=== PATIENT | female | born 1990 | race Two or more races ===

== ENCOUNTER 2025-03-13 11:29 | Inpatient (IN) | payer OTHER ==
[~2025-03-13] VITALS: Ht 167.6 cm; Wt 90.5 kg
[2025-03-13 12:05] VITALS: PULSE 89; RESP 25; O2SAT 98
[2025-03-13] MEDS: LORazepam 0.5 MG TAB PO ONE (12:22)
[2025-03-13] MEDS: ACETAMINOPHEN 325 MG TAB PO ONE (12:22)
--- NOTE | 2025-03-13 12:38 | ED.PDOC ---
History of Present Illness HPI Comments 34 y/o F, BIBA, with PMHx of CAD, DVT's, and varicose veins presents to the ED for CC of s/p syncopal episode. EMS reports, patient was coming from home where she had a witnessed syncopal episode after complaining of a headache. Upon arrival to ED, following incident patient complains of new onset symptoms of non-radiating chest pain. She was also complaining numbness tingling to her lips and extremities. She was tachypneic. Patient comments, on previous episodes in the past. No other symptoms or modifying factors present at this time. Denies pain. 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 Family History Family History: Unknown Social History Smoker: Non-Smoker Alcohol: Denies ETOH Use Drugs: Denies Drug Use Lives In: Home Constitutional: denies: chills, diaphoresis, fatigue, fever, malaise, sweats, weakness, others EENTM: denies: blurred vision, double vision, ear bleeding, ear discharge, ear drainage, ear pain, ear ringing, eye pain, eye redness, hearing loss, mouth pain, mouth swelling, nasal discharge, nose bleeding, nose congestion, nose pain, photophobia, tearing, throat pain, throat swelling, voice changes, others Respiratory: denies: cough, hemoptysis, orthopnea, SOB at rest, shortness of breath, SOB with excertion, stridor, wheezing, others Cardiovascular: reports: chest pain; denies: dizzy spells, diaphoresis, Dyspnea on exertion, edema, irregular heart beat, left arm pain, lightheadedness, palpitations, PND, syncope, others Gastrointestinal: denies: abdomen distended, abdominal pain, blood streaked bowels, constipated, diarrhea, dysphagia, difficulty swallowing, hematemesis, melena, nausea, poor appetite, poor fluid intake, rectal bleeding, rectal pain, vomiting, others Genitourinary: denies: abnormal vagina bleeding, burning, dyspareunia, dysuria, flank pain, frequency, hematuria, incontinence, pain, , vagina discharge, urgency, others Neurological: reports: headache; denies: dizziness, fainting, left sided numbness, left sided weakness, numbness, paresthesia, pre-existing deficit, right sided numbness, right sided weakness, seizure, speech problems, tingling, tremors, weakness, others Musculoskeletal: denies: back pain, gout, joint pain, joint swelling, muscle pain, muscle stiffness, neck pain, others Integumetry: denies: bruises, change in color, change in hair/nails, dryness, laceration, lesions, lumps, rash, wounds, others Allergic/Immunocompromised: denies: Difficulty Healing, Frequent Infections, Hives, Itching, others Hematologic/Lymphatic: denies: anemia, blood clots, easy bleeding, easy bruising, swollen glands, others Endocrine: denies: excessive hunger, excessive sweating, excessive thirst, excessive urination, flushing, intolerance to cold, intolerance to heat, unexplained weight gain, unexplained weight loss, others Psychiatric: denies: anxiety, bipolar disorder, depression, hopeless, panic disorder, schizophrenia, sleepless, suicidal, others All Other Systems: Reviewed and Negative Physical Exam General Appearance: No Apparent Distress, Obese HEENT: Normal ENT Inspection, Pharynx Normal Neck: Full Range of Motion, Non-Tender, Normal, Normal Inspection Respiratory: Chest Non-Tender, Lungs Clear, No Accessory Muscle Use, No Respiratory Distress, Normal Breath Sounds Cardiovascular: No Edema, No Murmur, No Gallop, Normal Peripheral Pulses, Regular Rate/Rhythm Breast Exam: Deferred Gastrointestinal: No Organomegaly, Non Tender, No Pulsatile Mass, Normal Bowel Sounds, Soft Genitalia: Deferred Pelvic: Deferred Rectal: Deferred Extremities: No calf tenderness, Normal capillary refill, Normal inspection, Normal range of motion, Non-tender, No pedal edema Musculoskeletal : Location: Right Extremity Location: Hand (CARPAL SPASMS) Apperance: Normal 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 Was a procedure done?: No EKG EKG : Pulse Rate (adult): 87 [place]: Normal Cardiac Rhythm: NSR Block: None Hypertrophy: None ST: Normal Differential Dx Considerations may include: ANXIETY, ELECTROLYTE IMBALANCE, HYPOGLYCEMIA, MIGRAINE X-Ray, Labs, Meds, VS Vital Signs Date Time Temp Pulse Resp B/P (MAP) Pulse Ox O2 Delivery O2 Flow Rate FiO2 03/13/25 14:47 100.1 03/13/25 13:47 102.6 03/13/25 13:24 102.6 03/13/25 12:48 87 03/13/25 12:22 101.0 03/13/25 12:05 101.0 89 25 131/75 (93) 98 101.0 03/13/25 12:05 89 25 98 Room Air* 0 21 03/13/25 12:03 98.8 99 28 128/76 (93) 98.8 03/13/25 11:30 87 Lab Test 03/13/25 13:30 03/13/25 13:11 Range/Units Urine Color Light-yellow Yellow Urine Clarity Clear Clear Urine pH 8.0 5.0-9.0 Urine Specific [place] 1.016 1.001-1.035 Urine Protein Negative Negative Urine Ketones Negative Negative Urine Blood 2+ H Negative /uL Urine Nitrite Negative Negative Urine Bilirubin Negative Negative Urine Urobilinogen Normal Negative mg/dL Urine Leukocyte Esterase Negative Negative /uL Urine RBC 19 0 - 4 /hpf Urine Microscopic WBC < 1 0-5 /HPF Urine Squamous Epithelial Cells None seen <5 /hpf Urine Bacteria None seen None Seen /hpf Urine Glucose Normal Normal mg/dL Urine Test Negative Negative Urine Opiates Screen Neg NEGATIVE Urine Fentanyl Screen Neg NEGATIVE Urine Barbiturates Screen Neg NEGATIVE Urine Phencyclidine Screen Neg NEGATIVE Urine Amphetamines Screen Neg NEGATIVE Urine Benzodiazepines Screen Neg NEGATIVE Urine Cocaine Screen Neg NEGATIVE Urine Cannabinoids Screen Neg NEGATIVE White Blood Count 8.6 4.4-10.8 10^3/uL Red Blood Count 5.07 4.0-5.20 10^6/uL Hemoglobin 14.4 12.2-16.2 g/dL Hematocrit 43.4 36.0-46.0 % Mean Corpuscular Volume 85.6 80.0-100.0 fL Mean Corpuscular Hemoglobin 28.4 28.0-32.0 pg Mean Corpuscular Hemoglobin Concent 33.2 32.0-36.0 g/dL Red Cell Distribution Width 13.4 11.8-14.3 % Platelet Count 220 140-450 10^3/uL Mean Platelet Volume 9.0 6.9-10.8 fL Neutrophils (%) (Auto) 83.2 H 37.0-80.0 % Lymphocytes (%) (Auto) 10.2 10.0-50.0 % Monocytes (%) (Auto) 6.0 0.0-12.0 % Eosinophils (%) (Auto) 0.3 0.0-7.0 % Basophils (%) (Auto) 0.3 0.0-2.0 % Neutrophils # (Auto) 7.2 1.6-8.6 10 ^3/uL Lymphocytes # (Auto) 0.9 0.4-5.4 10 ^3/uL Monocytes # (Auto) 0.5 0-1.3 10 ^3/uL Eosinophils # (Auto) 0 0-0.8 10 ^3/uL Basophils # (Auto) 0 0-0.2 10 ^3/uL Nucleated Red Blood Cells 0.1 % Sodium Level 137 136-145 mmol/L Potassium Level 3.5 3.5-5.1 mmol/L Chloride Level 104 98-107 mmol/L Carbon Dioxide Level 23 20-31 mmol/L Anion Gap 10 5-15 Blood Urea Nitrogen 11 9-23 mg/dL Creatinine 0.59 0.550-1.02 mg/dL Glomerular Filtration Rate Calc 121 >90 mL/min BUN/Creatinine Ratio 18.6 10.0-20.0 Serum Glucose 97 74-106 mg/dL Lactic Acid Level 1.8 0.4-2.0 mmol/L Calcium Level 9.3 8.7-10.4 mg/dL Total Bilirubin 0.4 0.2-1.0 mg/dL Aspartate Amino Transferase (AST) 13 13-40 U/L Alanine Aminotransferase (ALT) 10 7-40 U/L Alkaline Phosphatase 95 46-116 U/L Total Protein 7.8 5.7-8.2 g/dL Albumin 4.7 3.2-4.8 g/dL Current Medications Medications (Trade) Dose Ordered Sig/Angelita Route Start Time Stop Time Status Last Admin Acetaminophen (Tylenol Tablet) 650 mg ONCE ONCE PO 03/13/25 12:30 03/13/25 12:31 DC 03/13/25 12:22 Lorazepam (Ativan Tablet) 1 mg ONCE ONCE PO 03/13/25 12:30 03/13/25 12:31 DC 03/13/25 12:22 Ibuprofen (Motrin Tablet) 600 mg ONCE ONCE PO 03/13/25 13:30 03/13/25 13:31 DC 03/13/25 13:47 X-Ray, Labs, Meds, VS Comment This 34-year-old female presents secondary to acute onset of headache, neck pain and rapid breathing. She was complaining numbness tingling to all her extremities. She was history of anxiety. The patient has normal labs but has unexplained fever and tachycardia. She was given Ativan, Benadryl. When she was rechecked at approximately 3:00 p.m., she states she feels substantially better. Vancomycin Zosyn was also ordered. As she was unexplained fever as high as 102.6 with tachycardia for further workup management. She may have an occult infection. I will admit her further workup management. Time of 1ST Reevaluation: 13:01 Reevaluation 1ST: Unchanged Time of 2ND Reevaluation: 15:05 Reevaluation 2ND: Improved Patient Education/Counseling: Diagnosis, Treatment Family Education/Counseling: No Family Present Departure 1 Departure Time of Disposition: 15:05 Impression: Primary Impression: Headache Additional Impressions: Fever Tachycardia Disposition: ADMITTED INPATIENT Admit to: Tele Condition: Serious Discharged With: Self, Spouse Critical Care Note Critical Care Time?: Yes (30 min-critical care time only) Critical care comment: Total critical care time: Approximately 36 minutes Due to a high probability of clinically significant, life threatening deterioration, the patient required my highest level of preparedness to intervene emergently and I personally spent this critical care time directly and personally managing the patient. This critical care time included obtaining a history; examining the patient; pulse oximetry; ordering and review of studies; arranging urgent treatment with development of a management plan; evaluation of patient's response to treatment; frequent reassessment; and, discussions with other providers. This critical care time was performed to assess and manage the high probability of imminent, life-threatening deterioration that could result in multi-organ failure. It was exclusive of separately billable procedures and treating other patients and teaching time. Please see MDM section and the rest of the note for further information on patient assessment and treatment. Stability Stability form required: No Heart Score Heart Score: Heart Score Response (Comments) Value History N/A 0 EKG N/A 0 Age N/A 0 Risk Factors N/A 0 Troponin N/A 0 Total 0 I personally scribed for CONNIE LUTZ MD ([email or web address]) on 03/13/25 at 12:38. Electronically submitted by Ngoc Hawkins ([email or web address]). I personally scribed for CONNIE LUTZ MD ([email or web address]) on 03/13/25 at 12:48. Electronically submitted by Ngoc Hawkins ([email or web address]). CONNIE LUTZ MD Mar 13, 2025 12:38
[2025-03-13 13:27] LABS: Basophils # (auto) 0 10 ^3/uL (0-0.2); Basophils % (auto) 0.3 % (0.0-2.0); Eosinophils # (auto) 0 10 ^3/uL (0-0.8); Eosinophils % (auto) 0.3 % (0.0-7.0); Hematocrit 43.4 % (36.0-46.0); Hemoglobin 14.4 g/dL (12.2-16.2); Lymphocytes # (auto) 0.9 10 ^3/uL (0.4-5.4); Lymphocytes % (auto) 10.2 % (10.0-50.0); Mean Corpuscular Hemoglobin 28.4 pg (28.0-32.0); Mean Corpuscular Hgb Conc. 33.2 g/dL (32.0-36.0); Mean Corpuscular Volume 85.6 fL (80.0-100.0); Monocytes # (auto) 0.5 10 ^3/uL (0-1.3); Neutrophils # (auto) 7.2 10 ^3/uL (1.6-8.6); Neutrophils % (auto) 83.2 % (37.0-80.0); Nucleated Red Blood Cells % 0.1 %; Platelet Count (auto) 220 10^3/uL (140-450); Red Blood Cells 5.07 10^6/uL (4.0-5.20); Red Cell Distribution Width 13.4 % (11.8-14.3); White Blood Cell 8.6 10^3/uL (4.4-10.8)
[2025-03-13 13:45] LABS: Alanine Aminotransferase 10 U/L (7-40); Albumin 4.7 g/dL (3.2-4.8); Alkaline Phosphatase 95 U/L (46-116); Anion Gap 10 (5-15); Aspartate Aminotransferase 13 U/L (13-40); BUN/Creatinine Ratio 18.6 (10.0-20.0); Bilirubin, Total 0.4 mg/dL (0.2-1.0); Blood Urea Nitrogen 11 mg/dL (9-23); Calcium 9.3 mg/dL (8.7-10.4); Carbon Dioxide 23 mmol/L (20-31); Chloride 104 mmol/L (98-107); Glucose 97 mg/dL (74-106); Potassium 3.5 mmol/L (3.5-5.1); Sodium 137 mmol/L (136-145); Total Protein 7.8 g/dL (5.7-8.2)
[2025-03-13] MEDS: IBUPROFEN 600 MG TAB PO ONE (13:47)
[2025-03-13 13:49] LABS: Urine Bacteria None Seen /hpf (None Seen)
[2025-03-13 14:02] LABS: Urine Blood 2+ /uL (Negative); Urine Clarity Clear (Clear); Urine Color Light-Yellow (Yellow); Urine Protein, UAD Negative (Negative); Urine Specific Gravity 1.016 (1.001-1.035); Urine Squamous Epithelial Cell None Seen /hpf (<5); Urine Urobilinogen Normal (Negative); Urine WBC < 1 /HPF (0-5)
[2025-03-13 14:18] LABS: Amphetamine Screen, Urine Neg (NEGATIVE); Barbiturate Scree,Urine Neg (NEGATIVE); Benzodiazephine Screen, Urine Neg (NEGATIVE); Cannabinoid Screen, Urine Neg (NEGATIVE); Cocaine Screen, Urine Neg (NEGATIVE); Opiate Scree,Urine Neg (NEGATIVE); Phencyclidine Screen, Urine Neg (NEGATIVE)
--- NOTE | 2025-03-13 14:37 | DVH ---
EXAM: CT HEAD WITHOUT CONTRAST HISTORY: headache COMPARISON: None TECHNIQUE: Axial images of the head were obtained and reformatted in coronal and sagittal planes. All CT scans at this medical facility are performed using dose modulation techniques as appropriate t o a performed exam including the following: Automated exposure control was utilized; adjustment of th e MA and/or KV according to patient size; and use of iterative reconstruction technique. CT Dose: CTDI volume is 52 mGy. Dose-length product is 863 mGy*cm FINDINGS: There is no evidence of acute intracranial hemorrhage, mass, mass effect midline shift. There is no h ydrocephalus or extra-axial fluid collection. Incidental note is made of cavum septum pellucidum. Gr ay-white matter differentiation is maintained. The visualized paranasal sinuses and mastoid air cells are clear. The calvarium is intact. IMPRESSION: 1. No acute intracranial process. HS:Y
[2025-03-13] MEDS: diphenhdrAMINE HCL 50 MG/1 ML VL IV ONE (14:56)
[2025-03-13] MEDS: PIPERACILLIN-TAZOB 3.375GM 100 ML IV ONE (14:58)
[2025-03-13] MEDS ORDERED: NITROGLYCERIN 0.4 MG SL TAB SL PRN (18:15)
[2025-03-13] MEDS ORDERED: MORPHINE SULFATE INJ 2 MG/ml SYRG IV PRN ×2 (18:15)
[2025-03-13] MEDS ORDERED: TEMAZEPAM 15 MG CAP PO PRN (18:15)
[2025-03-13] MEDS ORDERED: DOCUSATE SOD 100 MG CAP PO PRN (18:15)
[2025-03-13] MEDS: SODIUM CHLORIDE 0.9% 1,000 ML IV SCH (18:35)
[2025-03-13] MEDS: AZITHROMYCIN 500MG/ 250ML 250 ML IV SCH (18:36)
--- NOTE | 2025-03-13 18:53 | ECG ---
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
[2025-03-13] MEDS: ONDANSETRON HCL 4 MG/2 ML VIAL IV PRN (19:02)
[2025-03-13 19:36] LABS: Rapid Influenza A Negative (Negative); Rapid Influenza B Negative (Negative)
[2025-03-13 20:28] VITALS: PULSE 93; RESP 17; O2SAT 98
--- NOTE | 2025-03-13 21:04 | DVHHP2 ---
History of Present Illness 34 y/o female patient with h/o CAD, DVT presents with c/o syncope. Patient repor ts having a headache prior to witnessed syncopal episode. Patient also c/o chest pain upon arrival to ED. While in the emergency department the patient was evaluated by the provider, As per provider: Labs, vital signs, and imagining monitored. Patient will be admitted for further evaluation and treatment. I discussed admission with the patient/family and is in agreement to treatment plan. Allergies: Coded Allergies: NO KNOWN ALLERGIES (Unverified , 03/13/25) Current Medications Current Medications Medications (Trade) Dose Ordered Sig/Angelita Route PRN Reason Start Time Stop Time Status Last Admin Sodium Chloride 1,000 ml @ 120 mls/hr Q8H20M IV 03/13/25 18:15 03/13/25 18:35 Acetaminophen/ Hydrocodone Bitart ([place] 5/325MG Tab) 1 tab Q4HP PRN PO MODERATE PAIN (4-6 PAIN SCALE) 03/13/25 18:15 Temazepam (Restoril) 15 mg QHSP PRN PO FOR INSOMNIA 03/13/25 18:15 Ondansetron HCl (Zofran) 4 mg Q4HP PRN IV NAUSEA / VOMITING 03/13/25 18:15 03/13/25 19:02 Docusate Sodium (Colace Capsule) 100 mg BIDPRN PRN PO FOR CONSTIPATION 03/13/25 18:15 Enoxaparin Sodium (Lovenox) 40 mg DAILY SC 03/14/25 10:00 Acetaminophen (Tylenol Tablet) 650 mg Q6HP PRN PO PAIN SCALE 1-3 OR TEMP>100.4 03/13/25 18:15 Morphine Sulfate 2 mg Q4HPRN PRN IV SEVERE PAIN (7-10 PAIN SCALE) 03/13/25 18:15 Nitroglycerin (Ntrostat Sublingual) 0.4 mg Q5MINP PRN SL FOR CHEST PAIN 03/13/25 18:15 Morphine Sulfate 2 mg Q30M PRN IV FOR CHEST PAIN 03/13/25 18:15 Azithromycin 250 ml @ 125 mls/hr DAILY IV 03/13/25 18:15 03/13/25 18:36 Famotidine (Pepcid Injection) 20 mg DAILY IV 03/14/25 10:00 Review of Systems Constitutional: denies chills, denies fever, denies malaise Eyes: denies eye pain, denies vision change ENT: denies ear pain, denies headache, denies nasal congestion, denies painful swallowing, denies voice change Cardiovascular: denies chest pain, denies edema, denies orthopnea, denies p alpitations, denies paroxysmal nocturnal dyspnea Respiratory: denies cough, denies shortness of breath Gastrointestinal: denies constipation, denies diarrhea, denies nausea, denies vomiting Genitourinary: denies dysuria, denies frequent urination, denies urethral discharge Musculoskeletal: denies back pain, denies joint pain, denies muscle pain Skin: denies bruising, denies itching, denies rash Neurological: denies focal weakness, denies headache, denies sensory changes Psychiatric: denies anxiety, denies depression Endocrine: denies polydipsia, denies polyuria Hematologic/Lymphatic: denies easy bleeding, denies easy bruising, denies enlarged lymph nodes Allergic/Immunologic: denies allergy, denies hives Vital Signs Vital Signs Date Time Temp Pulse Resp B/P (MAP) Pulse Ox O2 Delivery O2 Flow Rate FiO2 03/13/25 20:28 93 17 98 Room Air* 0 21 03/13/25 19:56 99.3 112/55 (74) 99.3 Physical Exam General Appearance: alert, no distress HEENT: EOMI, PERRLA, normal external inspect of ears, no icterus, no nasal drainage Neck: no carotid bruit, no jugular venous distention (JVD), no lymphadenopathy Chest: normal thorax Respiratory: clear to auscultation, normal air movement Cardiovascular: regular rate and rhythm, no diastolic murmur, no jugular venous distention (JVD), no rub, no systolic murmur Abdominal: soft, no hepatomegaly, no mass, no splenomegaly, no tenderness Genitourinary: grossly normal external Musculoskeletal: no joint tenderness, no swelling Extremities: normal pulses, no calf tenderness, no clubbing, no cyanosis, no edema Skin: no bruising, no jaundice, no rash Neurological: alert, No focal deficit Results Labs Test 03/13/25 18:45 03/13/25 13:30 03/13/25 13:11 Range/Units Influenza Type A Antigen Negative Negative Influenza Type B Antigen Negative Negative Urine Color Light-yellow Yellow Urine Clarity Clear Clear Urine pH 8.0 5.0-9.0 Urine Specific [place] 1.016 1.001-1.035 Urine Protein Negative Negative Urine Ketones Negative Negative Urine Blood 2+ H Negative /uL Urine Nitrite Negative Negative Urine Bilirubin Negative Negative Urine Urobilinogen Normal Negative mg/dL Urine Leukocyte Esterase Negative Negative /uL Urine RBC 19 0 - 4 /hpf Urine Microscopic WBC < 1 0-5 /HPF Urine Squamous Epithelial Cells None seen <5 /hpf Urine Bacteria None seen None Seen /hpf Urine Glucose Normal Normal mg/dL Urine Test Negative Negative Urine Opiates Screen Neg NEGATIVE Urine Fentanyl Screen Neg NEGATIVE Urine Barbiturates Screen Neg NEGATIVE Urine Phencyclidine Screen Neg NEGATIVE Urine Amphetamines Screen Neg NEGATIVE Urine Benzodiazepines Screen Neg NEGATIVE Urine Cocaine Screen Neg NEGATIVE Urine Cannabinoids Screen Neg NEGATIVE White Blood Count 8.6 4.4-10.8 10^3/uL Red Blood Count 5.07 4.0-5.20 10^6/uL Hemoglobin 14.4 12.2-16.2 g/dL Hematocrit 43.4 36.0-46.0 % Mean Corpuscular Volume 85.6 80.0-100.0 fL Mean Corpuscular Hemoglobin 28.4 28.0-32.0 pg Mean Corpuscular Hemoglobin Concent 33.2 32.0-36.0 g/dL Red Cell Distribution Width 13.4 11.8-14.3 % Platelet Count 220 140-450 10^3/uL Mean Platelet Volume 9.0 6.9-10.8 fL Neutrophils (%) (Auto) 83.2 H 37.0-80.0 % Lymphocytes (%) (Auto) 10.2 10.0-50.0 % Monocytes (%) (Auto) 6.0 0.0-12.0 % Eosinophils (%) (Auto) 0.3 0.0-7.0 % Basophils (%) (Auto) 0.3 0.0-2.0 % Neutrophils # (Auto) 7.2 1.6-8.6 10 ^3/uL Lymphocytes # (Auto) 0.9 0.4-5.4 10 ^3/uL Monocytes # (Auto) 0.5 0-1.3 10 ^3/uL Eosinophils # (Auto) 0 0-0.8 10 ^3/uL Basophils # (Auto) 0 0-0.2 10 ^3/uL Nucleated Red Blood Cells 0.1 % Sodium Level 137 136-145 mmol/L Potassium Level 3.5 3.5-5.1 mmol/L Chloride Level 104 98-107 mmol/L Carbon Dioxide Level 23 20-31 mmol/L Anion Gap 10 5-15 Blood Urea Nitrogen 11 9-23 mg/dL Creatinine 0.59 0.550-1.02 mg/dL Glomerular Filtration Rate Calc 121 >90 mL/min BUN/Creatinine Ratio 18.6 10.0-20.0 Serum Glucose 97 74-106 mg/dL Lactic Acid Level 1.8 0.4-2.0 mmol/L Calcium Level 9.3 8.7-10.4 mg/dL Total Bilirubin 0.4 0.2-1.0 mg/dL Aspartate Amino Transferase (AST) 13 13-40 U/L Alanine Aminotransferase (ALT) 10 7-40 U/L Alkaline Phosphatase 95 46-116 U/L Total Protein 7.8 5.7-8.2 g/dL Albumin 4.7 3.2-4.8 g/dL Plan 1. Fever Monitor, PRN Tylenol, cooling measures, blood culture 2. Tachycardia Monitor EKG 3. Upper viral syndrome Monitor, r/o infection, r/o COVID, Azithromycin, supplemental O2 Plan discussed with: Patient, Other MARCELINO DESOUZA NP Mar 13, 2025 21:04
[2025-03-13] MEDS: ACETAMINOPHEN 325 MG TAB PO PRN (23:40)
[2025-03-14] VITALS (11 sets, daily range): BP systolic 102–128; BP diastolic 54–70; PULSE 91–113; RESP 15–19; TEMP 97.8–103; O2SAT 93–100
[2025-03-14 00:36] LABS: COVID19 ANTIGEN SOFIA FIA NEGATIVE (NEGATIVE)
[2025-03-14] MEDS: HYDROcodone-ACET 5/325MG TAB PO PRN (05:27)
[2025-03-14 07:50] LABS: Alanine Aminotransferase 11 U/L (7-40); Albumin 4.2 g/dL (3.2-4.8); Alkaline Phosphatase 78 U/L (46-116); Anion Gap 11 (5-15); BUN/Creatinine Ratio 14.5 (10.0-20.0); Blood Urea Nitrogen 8 mg/dL (9-23); Calcium 8.6 mg/dL (8.7-10.4); Carbon Dioxide 21 mmol/L (20-31); Chloride 104 mmol/L (98-107); Glucose 124 mg/dL (74-106); Potassium 3.4 mmol/L (3.5-5.1); Sodium 136 mmol/L (136-145); Total Protein 7.1 g/dL (5.7-8.2)
[2025-03-14 07:51] LABS: Aspartate Aminotransferase 12 U/L (13-40); Bilirubin, Total 0.3 mg/dL (0.2-1.0)
[2025-03-14 07:54] LABS: Basophils # (auto) 0 10 ^3/uL (0-0.2); Basophils % (auto) 0.1 % (0.0-2.0); Eosinophils # (auto) 0 10 ^3/uL (0-0.8); Hematocrit 39.6 % (36.0-46.0); Hemoglobin 13.1 g/dL (12.2-16.2); Lymphocytes # (auto) 0.7 10 ^3/uL (0.4-5.4); Monocytes # (auto) 0.5 10 ^3/uL (0-1.3); Monocytes % (auto) 4.1 % (0.0-12.0); Neutrophils # (auto) 10.3 10 ^3/uL (1.6-8.6); Neutrophils % (auto) 89.8 % (37.0-80.0); Platelet Count (auto) 212 10^3/uL (140-450); Red Blood Cells 4.65 10^6/uL (4.0-5.20); Red Cell Distribution Width 13.6 % (11.8-14.3); White Blood Cell 11.4 10^3/uL (4.4-10.8)
[2025-03-14] MEDS: FAMOTIDINE (10MG/ML) 2ML VL IV SCH (09:02)
[2025-03-14] MEDS: ENOXAPARIN SOD 40 MG/0.4 ML SYRINGE SC SCH (09:02)
[2025-03-14] MEDS: POTASSIUM EFFERVESENT TAB 25 MEQ PO ONE (11:21)
[2025-03-14] MEDS: KETOROLAC TROMETH 30 MG/ML 1ML VIAL IV PRN (16:42)
--- NOTE | 2025-03-14 18:28 | DVHPN2 ---
Progress Note Date Seen: Mar 14, 2025 Medical Necessity Reason Pt with a Central, PICC or Fol: No Subjective Review of Systems: CVS:Normal, RESPIRATORY:Normal, GI:Normal Objective vital signs Vital Sign Date Time Temp Pulse Resp B/P (MAP) Pulse Ox O2 Delivery O2 Flow Rate FiO2 03/14/25 17:29 99.5 98 19 103/57 (72) 96 99.5 03/14/25 08:15 Room Air* 0 21 Total Intake and Output 03/13/25 03/13/25 03/14/25 15:00 23:00 07:00 Intake Total 470 ml 1180 ml Balance 470 ml 1180 ml medications Current Medications Medications Dose Ordered Sig/Angelita Route Start Time Stop Time Status Last Admin Dose Admin Sodium Chloride 1,000 ml @ 120 mls/hr Q8H20M IV 03/13/25 18:15 03/14/25 11:24 120 MLS/HR Acetaminophen/ Hydrocodone Bitart 1 tab Q4HP PRN PO 03/13/25 18:15 Hold 03/14/25 14:06 1 TAB Temazepam 15 mg QHSP PRN PO 03/13/25 18:15 Ondansetron HCl 4 mg Q4HP PRN IV 03/13/25 18:15 03/14/25 13:59 4 MG Docusate Sodium 100 mg BIDPRN PRN PO 03/13/25 18:15 Enoxaparin Sodium 40 mg DAILY SC 03/14/25 10:00 03/14/25 09:02 40 MG Acetaminophen 650 mg Q6HP PRN PO 03/13/25 18:15 03/14/25 09:01 650 MG Morphine Sulfate 2 mg Q4HPRN PRN IV 03/13/25 18:15 Nitroglycerin 0.4 mg Q5MINP PRN SL 03/13/25 18:15 Morphine Sulfate 2 mg Q30M PRN IV 03/13/25 18:15 Azithromycin 250 ml @ 125 mls/hr DAILY IV 03/13/25 18:15 03/14/25 09:03 125 MLS/HR Famotidine 20 mg DAILY IV 03/14/25 10:00 03/14/25 09:02 20 MG Ketorolac Tromethamine 30 mg Q6HPRN PRN IV 03/14/25 15:30 03/19/25 15:29 03/14/25 16:42 30 MG Examination: GENERAL:Normal, LUNGS:Normal, CVS:Normal, ABDOMEN:Normal, SKIN:Normal, NEURO:Normal laboratory and microbiology Laboratory Tests 03/14/25 06:07 Test 03/14/25 06:07 Range/Units Serum Glucose 124 H 74-106 mg/dL Microbiology Date/Time Source Procedure Growth Status 03/13/25 15:10 Blood Blood Culture - Preliminary NO GROWTH AFTER 24 HOURS OF INCUBATION. Resulted Labs and/or images reviewed: Labs reviewed by me, Image(s) reviewed by me Problem List/Assessment/Plan Problem List/Assessment/Plan 1. Fever Monitor, PRN Tylenol, cooling measures, blood culture 2. Tachycardia Monitor EKG 3. Upper viral syndrome Monitor, r/o infection, r/o COVID, Azithromycin, supplemental O2 Subjective: Awake and alert Objective: Patient was admitted for upper viral syndrome she was found to be COVID and flu ab negative. Patient was having some fevers Plan: Continue with supportive care, continue with IV fluids, continue with IV antibiotics Plan discussed with: Patient My Orders My Orders Orders - KATE WISE Procedure Category Date Status Time Ketorolac Injection PHA 03/14/25 In Process (Toradol Injection) 15:30 Lipase LAB 03/14/25 Transmitted 18:25 Amylase LAB 03/14/25 Transmitted 18:25 Date of Service: Mar 14, 2025 Billing Provider: BERTHA GUSTAFSON MD Common Visit Codes: [id number] INP/OBS CARE (MOD) KATE WISE Mar 14, 2025 18:28
[2025-03-14 18:47] LABS: Lipase 34 U/L (12-53)
[2025-03-14 18:49] LABS: Amylase 41 U/L (30-118)
[2025-03-15] VITALS (8 sets, daily range): BP systolic 108–131; BP diastolic 64–68; PULSE 60–94; RESP 16–82; TEMP 97.8–99.7; O2SAT 96–100
[2025-03-15 09:31] LABS: Basophils # (auto) 0 10 ^3/uL (0-0.2); Basophils % (auto) 0.2 % (0.0-2.0); Eosinophils # (auto) 0 10 ^3/uL (0-0.8); Eosinophils % (auto) 0.1 % (0.0-7.0); Hematocrit 40.2 % (36.0-46.0); Hemoglobin 13.2 g/dL (12.2-16.2); Lymphocytes # (auto) 1.4 10 ^3/uL (0.4-5.4); Lymphocytes % (auto) 12.3 % (10.0-50.0); Mean Corpuscular Hgb Conc. 32.8 g/dL (32.0-36.0); Mean Corpuscular Volume 85.3 fL (80.0-100.0); Monocytes # (auto) 0.8 10 ^3/uL (0-1.3); Monocytes % (auto) 7.2 % (0.0-12.0); Neutrophils # (auto) 8.9 10 ^3/uL (1.6-8.6); Neutrophils % (auto) 80.2 % (37.0-80.0); Nucleated Red Blood Cells % 0.1 %; Platelet Count (auto) 198 10^3/uL (140-450); Red Blood Cells 4.71 10^6/uL (4.0-5.20); Red Cell Distribution Width 13.7 % (11.8-14.3); White Blood Cell 11.1 10^3/uL (4.4-10.8)
[2025-03-15 09:54] LABS: Alanine Aminotransferase 12 U/L (7-40); Alkaline Phosphatase 82 U/L (46-116); Anion Gap 10 (5-15); BUN/Creatinine Ratio 19.6 (10.0-20.0); Blood Urea Nitrogen 10 mg/dL (9-23); Carbon Dioxide 22 mmol/L (20-31); Glucose 99 mg/dL (74-106); Potassium 3.8 mmol/L (3.5-5.1); Sodium 139 mmol/L (136-145); Total Protein 6.9 g/dL (5.7-8.2)
[2025-03-15 10:00] LABS: Aspartate Aminotransferase 13 U/L (13-40); Bilirubin, Total 0.3 mg/dL (0.2-1.0); Calcium 8.6 mg/dL (8.7-10.4); Chloride 107 mmol/L (98-107)
[2025-03-15] MEDS: MAALOX PLUS or MAALOX 30 ML PO ONE (10:48)
--- NOTE | 2025-03-15 13:49 | DVH ---
CLINICAL HISTORY: abdominal pain TECHNIQUE: CT of the abdomen and pelvis was performed without intravenous contrast. This exam was per formed according to our departmental dose optimization program. Up-to-date CT equipment and radiation dose reduction techniques are utilized as appropriate. CTDI: 16.42 DLP: 765.89 WID: COMPARISON: None FINDINGS: Lower Thorax: Unremarkable. Liver and Biliary system: Mild hepatomegaly measuring 19 cm craniocaudal. Otherwise unremarkable. Spleen: Unremarkable. Adrenal Glands and Kidneys: Unremarkable. Pancreas and Retroperitoneum: Grossly normal pancreas. Normal-sized retroperitoneal lymph nodes. Aorta and Major Vessels: Aortoiliac vessels are normal in caliber. There is a stent within the left c ommon femoral and external iliac veins, which patency can not be assessed without intravenous contras t. Bowel, Mesentery and Peritoneal space: Normal caliber small and large bowel. Prominent central mesent chary lymph nodes. There are scattered fluid-filled small bowel loops. There is no free air or fluid c ollection. Pelvis: There are bilateral ovarian cysts measuring 3.1 cm on the right and 2.0 cm on the left on ser ies 2, image 65. Mildly enlarged uterus. There is no pelvic lymphadenopathy. Urinary bladder is mildl y distended. Abdominal wall and Osseous Structures: No destructive osseous lesion. IMPRESSION: 1. No bowel obstruction, fluid collection, or free air. 2. Scattered fluid-filled small bowel loops which may be physiologic or related to enteritis. 3. Mildly prominent mesenteric and retroperitoneal lymph nodes, nonspecific on initial exam and may b e reactive. Consider follow-up CT in 3-6 months to re-evaluate this finding. 4. Mild hepatomegaly. 5. Mildly enlarged uterus. This is not optimally evaluated by CT. Consider further evaluation with pe lvic ultrasound if clinically indicated. 6. Bilateral ovarian cysts. 7. Stent in the left common femoral and external iliac veins, patency can not be assessed without int ravenous contrast.
--- NOTE | 2025-03-15 14:22 | DVHPN2 ---
Progress Note Date Seen: Mar 15, 2025 Medical Necessity Reason Pt with a Central, PICC or Fol: No Subjective Review of Systems: CVS:Normal, RESPIRATORY:Normal, GI:Normal Objective vital signs Vital Sign Date Time Temp Pulse Resp B/P (MAP) Pulse Ox O2 Delivery O2 Flow Rate FiO2 03/15/25 11:31 98.7 82 82 116/68 (84) 96 98.7 03/15/25 08:00 Room Air* 0 21 Total Intake and Output 03/14/25 03/14/25 03/15/25 15:00 23:00 07:00 Intake Total 610 ml 2740 ml 2360 ml Output Total 400 ml Balance 610 ml 2340 ml 2360 ml medications Current Medications Medications Dose Ordered Sig/Angelita Route Start Time Stop Time Status Last Admin Dose Admin Sodium Chloride 1,000 ml @ 120 mls/hr Q8H20M IV 03/13/25 18:15 03/15/25 11:55 120 MLS/HR Acetaminophen/ Hydrocodone Bitart 1 tab Q4HP PRN PO 03/13/25 18:15 Hold 03/14/25 14:06 1 TAB Temazepam 15 mg QHSP PRN PO 03/13/25 18:15 Ondansetron HCl 4 mg Q4HP PRN IV 03/13/25 18:15 03/15/25 11:03 4 MG Docusate Sodium 100 mg BIDPRN PRN PO 03/13/25 18:15 Enoxaparin Sodium 40 mg DAILY SC 03/14/25 10:00 03/15/25 10:48 40 MG Acetaminophen 650 mg Q6HP PRN PO 03/13/25 18:15 03/15/25 10:48 650 MG Morphine Sulfate 2 mg Q4HPRN PRN IV 03/13/25 18:15 Nitroglycerin 0.4 mg Q5MINP PRN SL 03/13/25 18:15 Morphine Sulfate 2 mg Q30M PRN IV 03/13/25 18:15 Ketorolac Tromethamine 30 mg Q6HPRN PRN IV 03/14/25 15:30 03/19/25 15:29 03/15/25 01:32 30 MG Ceftriaxone Sodium 50 ml @ 100 mls/hr DAILY@09 IV 03/16/25 09:00 UNV Metronidazole 100 ml @ 100 mls/hr Q8HR IV 03/15/25 22:00 UNV Pantoprazole Sodium 40 mg DAILY IV 03/16/25 10:00 UNV Examination: GENERAL:Normal, LUNGS:Normal, CVS:Normal, ABDOMEN:Normal, SKIN:Normal, NEURO:Normal laboratory and microbiology Laboratory Tests 03/15/25 08:30 Test 03/15/25 08:30 Range/Units Serum Glucose 99 74-106 mg/dL Microbiology Date/Time Source Procedure Growth Status 03/13/25 15:10 Blood Blood Culture - Preliminary NO GROWTH AFTER 24 HOURS OF INCUBATION. Resulted Labs and/or images reviewed: Labs reviewed by me, Image(s) reviewed by me Problem List/Assessment/Plan Problem List/Assessment/Plan 1. Fever Monitor, PRN Tylenol, cooling measures, blood culture 2. Tachycardia Monitor EKG 3. Upper viral syndrome Monitor, r/o infection, r/o COVID, Azithromycin, supplemental O2 4. Acute bacterial enteritis IV Flagyl, Rocephin 5. Leukocytosis likely secondary to enteritis 6. Hypokalemia Replace 7. Hypocalcemia 10. Sepsis likely from enteritis IV antibiotics, IV fluids Monitor Subjective: Awake and alert Objective: Patient was admitted for upper viral syndrome she was found to be COVID and flu ab negative. CT scan today was done which is consistent with enteritis. Patient was placed on IV Rocephin and IV Flagyl. Patient reports she still has a headache and does not feel well. We will also order Imitrex for headache. Plan: Continue with supportive care, continue with IV fluids, continue with IV antibiotics, possible discharge tomorrow Plan discussed with: Patient My Orders My Orders Orders - KATE WISE TERRAZZO GRINDER Procedure Category Date Status Time Ketorolac Injection PHA 03/14/25 In Process (Toradol Injection) 15:30 Ct Ab Pel Wo Con-No CT 03/15/25 Resulted Oral Or Iv 09:51 Ceftriaxone 1gm/50ml PHA 03/15/25 Logged D5w (Rocephin) 14:15 Ceftriaxone 1gm/50ml PHA 03/16/25 Logged D5w (Rocephin) 09:00 Metronidazole PHA 03/15/25 Logged 500mg/100ml (Flagyl 22:00 Metronidazole PHA 03/15/25 Logged 500mg/100ml (Flagyl 14:15 Pantoprazole PHA 03/16/25 Logged (Protonix) 10:00 Pantoprazole PHA 03/15/25 Logged (Protonix) 14:15 Sumatriptan Succinate PHA 03/15/25 Verified Tablet (Imitrex Ta 14:30 Date of Service: Mar 15, 2025 Billing Provider: BERTHA GUSTAFSON MD Common Visit Codes: [id number] INP/OBS CARE (MOD) KATE WISE TERRAZZO GRINDER Mar 15, 2025 14:22
[2025-03-15] MEDS: PANTOPRAZOLE 40 MG/10 ML VIAL INJ IV ONE (17:26)
[2025-03-15] MEDS: SUMAtriptan SUCCINATE 25 MG TAB PO ONE (17:26)
[2025-03-15] MEDS: cefTRIAXone 1GM/50ML D5W 50 ML IV ONE (17:26)
[2025-03-15] MEDS: metroNIDAZOLE 500MG/100ML 100 ML IV ONE (18:03)
--- NOTE | 2025-03-15 19:03 | DVHINCON2 ---
Date of service: Mar 15, 2025 Referring Physician Alexis Lancaster Reason for Consultation Abdominal pain History of Present Illness 34 y/o F, BIBA, with PMHx of CAD, DVT's, and varicose veins presents to the ED for CC of s/p syncopal episode. EMS reports, patient was coming from home where she had a witnessed syncopal episode after complaining of a headache. Upon arrival to ED, following incident patient complains of new onset symptoms of non-radiating chest pain. She was also complaining numbness tingling to her lips and extremities. No neuro or cardiology consult obtained GI was consulted today for abdominal pain and loose BM's. There was no nausea vomiting or hematemesis CT SCAN ABD done today suspicious for nonspecific enteritis Past Medical History CAD DVT Past Surgical History Coronary stent Family History: Patient reports no known family medical history. Allergies: Coded Allergies: NO KNOWN ALLERGIES (Unverified , 03/13/25) Current Medications Current Medications Medications (Trade) Dose Ordered Sig/Angelita Route PRN Reason Start Time Stop Time Status Last Admin Ceftriaxone Sodium 50 ml @ 100 mls/hr DAILY@09 IV 03/16/25 09:00 Metronidazole 100 ml @ 100 mls/hr Q8HR IV 03/15/25 22:00 Pantoprazole Sodium (Protonix) 40 mg DAILY IV 03/16/25 10:00 Vital Signs Vital Signs Date Time Temp Pulse Resp B/P (MAP) Pulse Ox O2 Delivery O2 Flow Rate FiO2 03/15/25 16:43 98.2 60 18 131/65 (87) 98 98.2 03/15/25 08:00 Room Air* 0 21 Physical Exam General Appearance: alert, no distress HEENT: EOMI, PERRLA, normal external inspect of ears, no icterus, no nasal drainage Respiratory: clear to auscultation, normal air movement Cardiovascular: regular rate and rhythm, no diastolic murmur Abdominal: soft, no hepatomegaly, no mass, no splenomegaly, no tenderness Genitourinary: grossly normal external Musculoskeletal: no joint tenderness, no swelling Extremities: normal pulses, no calf tenderness, no clubbing, no cyanosis, no edema Skin: no bruising, no jaundice, no rash Neurological: alert, No focal deficit Labs/Diagnostic Data Labs Test 03/15/25 08:30 03/14/25 06:07 03/13/25 23:15 03/13/25 18:45 Range/Units White Blood Count 11.1 H 4.4-10.8 10^3/uL Red Blood Count 4.71 4.0-5.20 10^6/uL Hemoglobin 13.2 12.2-16.2 g/dL Hematocrit 40.2 36.0-46.0 % Mean Corpuscular Volume 85.3 80.0-100.0 fL Mean Corpuscular Hemoglobin 28.0 28.0-32.0 pg Mean Corpuscular Hemoglobin Concent 32.8 32.0-36.0 g/dL Red Cell Distribution Width 13.7 11.8-14.3 % Platelet Count 198 140-450 10^3/uL Mean Platelet Volume 9.4 6.9-10.8 fL Neutrophils (%) (Auto) 80.2 H 37.0-80.0 % Lymphocytes (%) (Auto) 12.3 10.0-50.0 % Monocytes (%) (Auto) 7.2 0.0-12.0 % Eosinophils (%) (Auto) 0.1 0.0-7.0 % Basophils (%) (Auto) 0.2 0.0-2.0 % Neutrophils # (Auto) 8.9 H 1.6-8.6 10 ^3/uL Lymphocytes # (Auto) 1.4 0.4-5.4 10 ^3/uL Monocytes # (Auto) 0.8 0-1.3 10 ^3/uL Eosinophils # (Auto) 0 0-0.8 10 ^3/uL Basophils # (Auto) 0 0-0.2 10 ^3/uL Nucleated Red Blood Cells 0.1 % Sodium Level 139 136-145 mmol/L Potassium Level 3.8 3.5-5.1 mmol/L Chloride Level 107 98-107 mmol/L Carbon Dioxide Level 22 20-31 mmol/L Anion Gap 10 5-15 Blood Urea Nitrogen 10 9-23 mg/dL Creatinine 0.51 L 0.550-1.02 mg/dL Glomerular Filtration Rate Calc 126 >90 mL/min BUN/Creatinine Ratio 19.6 10.0-20.0 Serum Glucose 99 74-106 mg/dL Calcium Level 8.6 L 8.7-10.4 mg/dL Magnesium Level 2.0 1.6-2.6 mg/dL Total Bilirubin 0.3 0.2-1.0 mg/dL Aspartate Amino Transferase (AST) 13 13-40 U/L Alanine Aminotransferase (ALT) 12 7-40 U/L Alkaline Phosphatase 82 46-116 U/L Total Protein 6.9 5.7-8.2 g/dL Albumin 4.0 3.2-4.8 g/dL Amylase Level 41 30-118 U/L Lipase 34 12-53 U/L SARS-CoV-2 Antigen (Rapid) Negative NEGATIVE Influenza Type A Antigen Negative Negative Influenza Type B Antigen Negative Negative Test 03/13/25 13:30 03/13/25 13:11 Range/Units Urine Color Light-yellow Yellow Urine Clarity Clear Clear Urine pH 8.0 5.0-9.0 Urine Specific [place] 1.016 1.001-1.035 Urine Protein Negative Negative Urine Ketones Negative Negative Urine Blood 2+ H Negative /uL Urine Nitrite Negative Negative Urine Bilirubin Negative Negative Urine Urobilinogen Normal Negative mg/dL Urine Leukocyte Esterase Negative Negative /uL Urine RBC 19 0 - 4 /hpf Urine Microscopic WBC < 1 0-5 /HPF Urine Squamous Epithelial Cells None seen <5 /hpf Urine Bacteria None seen None Seen /hpf Urine Glucose Normal Normal mg/dL Urine Test Negative Negative Urine Opiates Screen Neg NEGATIVE Urine Fentanyl Screen Neg NEGATIVE Urine Barbiturates Screen Neg NEGATIVE Urine Phencyclidine Screen Neg NEGATIVE Urine Amphetamines Screen Neg NEGATIVE Urine Benzodiazepines Screen Neg NEGATIVE Urine Cocaine Screen Neg NEGATIVE Urine Cannabinoids Screen Neg NEGATIVE Lactic Acid Level 1.8 0.4-2.0 mmol/L Microbiology Date/Time Source Procedure Growth Status 03/13/25 15:10 Blood Blood Culture - Preliminary NO GROWTH AFTER 48 HOURS OF INCUBATION. Resulted CT SCAN ABD PELVIS IMPRESSION: 1. No bowel obstruction, fluid collection, or free air. 2. Scattered fluid-filled small bowel loops which may be physiologic or related to enteritis. 3. Mildly prominent mesenteric and retroperitoneal lymph nodes, nonspecific on initial exam and may be reactive. Consider follow-up CT in 3-6 months to re- evaluate this finding. 4. Mild hepatomegaly. 5. Mildly enlarged uterus. This is not optimally evaluated by CT. Consider further evaluation with pelvic ultrasound if clinically indicated. 6. Bilateral ovarian cysts. 7. Stent in the left common femoral and external iliac veins, patency can not be assessed without intravenous contrast. Problems(with codes): (1) Tachycardia (2) Fever (3) Headache (4) Abdominal pain in female (5) Abnormal finding on GI tract imaging (6) Hepatomegaly Plan/Recommendation Assessment plan It appeared that the patient was admitted with a viral illness starting with a headache prodrome febrile illness and syncope now with abdominal cramping and some diarrhea Patient also had history of chest pain and has history of coronary artery disease, rectum an echocardiogram and cardiology evaluation We will check stool for occult blood, WBC, C diff, bacterial culture Continue broad-spectrum antibiotics Advance diet as tolerated Continue IV Protonix and Zofran Monitor labs I will follow up patient with you Plan discussed with: Other (Nurse [place]) MINERVA SUAREZ MD Mar 15, 2025 19:03
[2025-03-16 01:00] VITALS: BP 103/56; PULSE 73; RESP 18; TEMP 98.9; O2SAT 98
[2025-03-16] MEDS: metroNIDAZOLE 500MG/100ML 100 ML IV SCH (01:13)
[2025-03-16 05:00] VITALS: BP 112/70; PULSE 65; RESP 18; TEMP 98.5; O2SAT 96
[2025-03-16 08:00] VITALS: PULSE 73; PULSE 84; RESP 15
[2025-03-16] MEDS: PANTOPRAZOLE 40 MG/10 ML VIAL INJ IV SCH (08:24)
[2025-03-16] MEDS: cefTRIAXone 1GM/50ML D5W 50 ML IV SCH (08:24)
[2025-03-16 09:00] VITALS: BP 117/68; PULSE 68; RESP 15; TEMP 98.3; O2SAT 96
--- NOTE | 2025-03-16 09:26 | DVHINCON2 ---
Date of service: Mar 16, 2025 History of Present Illness HPI Patient is a 34-year-old female who presented to the hospital on March 13, 2025 for syncopal episode. In emergency room the patient did have fever up to 102.6. Later had abdominal pain and diarrhea. Patient is admitted for syncopal evaluation. As per documentation in the chart the patient does have history of coronary artery disease. Patient herself denies any history of cardiac problem. Patient herself mentions that she does have old history of vessel problems in the legs for which has had stents in the veins (performed by vascular doctor before). Patient was seen by GI who suggested evaluation by Cardiology because of questionable history of coronary artery disease. Cardiology is involved for cardiac aspects of care. Patient denies any chest pain/palpitations. Patient mentions baseline good functional capacity. Patient mentions history of syncope when she was few years back also. Past Medical History Others Past medical history includes old history of DVTs and varicose veins. Patient has had stent in the veins before. Denies cardiac history. Patient Family History: Patient reports no known family medical history. Smoker: No Hx (Negative) Alocohol: None Drugs: None Lives with: With family Review of Systems Constitutional: Fever Ears, Nose, & Throat: No symptom reported Pulmonary/Respiratory: No symptom reported Cardiovascular: No symptom reported Gastrointestinal: Nausea, Vomiting, Abdominal Pain, Diarrhea All Other Systems 14 point review of system was performed. Relevant findings as per above and as per HPI. Otherwise negative. H&P Exam Vital Signs Vital Signs Date Time Temp Pulse Resp B/P (MAP) Pulse Ox O2 Delivery O2 Flow Rate FiO2 03/16/25 05:00 98.5 65 18 112/70 (84) 96 98.5 03/15/25 20:00 Room Air* 0 21 General Appeara: Well developed, Well nourished Head Exam: Normal inspection Eye Exam: bilateral eye PERRL Mouth: Normal Inspection Pulmonary/Respiratory: Lungs clear Cardiovascular/Chest: Normal inspection, Normal Rhythm Peripheral Pulses: 2+ carotid (R), 2+ carotid (L), 2+ femoral (R), 2+ femoral (L), 2+ dorsalis pedis (R), 2+ dorsalis pedis (L), 2+ Radial (R), 2+ Radial (L) Abdominal Exam: Normal bowel sounds Neuro/Mental St: Alert, Oriented Appearance: Appropriate appearance Eye contact/ Speech: Cooperative Labs/Xrays Labs Test 03/15/25 11:45 03/15/25 08:30 03/14/25 06:07 03/13/25 23:15 Range/Units Stool Occult Blood Negative Negative Stool Occult Blood Sample #3 Negative Stool for White Cells Moderate White Blood Count 11.1 H 4.4-10.8 10^3/uL Red Blood Count 4.71 4.0-5.20 10^6/uL Hemoglobin 13.2 12.2-16.2 g/dL Hematocrit 40.2 36.0-46.0 % Mean Corpuscular Volume 85.3 80.0-100.0 fL Mean Corpuscular Hemoglobin 28.0 28.0-32.0 pg Mean Corpuscular Hemoglobin Concent 32.8 32.0-36.0 g/dL Red Cell Distribution Width 13.7 11.8-14.3 % Platelet Count 198 140-450 10^3/uL Mean Platelet Volume 9.4 6.9-10.8 fL Neutrophils (%) (Auto) 80.2 H 37.0-80.0 % Lymphocytes (%) (Auto) 12.3 10.0-50.0 % Monocytes (%) (Auto) 7.2 0.0-12.0 % Eosinophils (%) (Auto) 0.1 0.0-7.0 % Basophils (%) (Auto) 0.2 0.0-2.0 % Neutrophils # (Auto) 8.9 H 1.6-8.6 10 ^3/uL Lymphocytes # (Auto) 1.4 0.4-5.4 10 ^3/uL Monocytes # (Auto) 0.8 0-1.3 10 ^3/uL Eosinophils # (Auto) 0 0-0.8 10 ^3/uL Basophils # (Auto) 0 0-0.2 10 ^3/uL Nucleated Red Blood Cells 0.1 % Sodium Level 139 136-145 mmol/L Potassium Level 3.8 3.5-5.1 mmol/L Chloride Level 107 98-107 mmol/L Carbon Dioxide Level 22 20-31 mmol/L Anion Gap 10 5-15 Blood Urea Nitrogen 10 9-23 mg/dL Creatinine 0.51 L 0.550-1.02 mg/dL Glomerular Filtration Rate Calc 126 >90 mL/min BUN/Creatinine Ratio 19.6 10.0-20.0 Serum Glucose 99 74-106 mg/dL Calcium Level 8.6 L 8.7-10.4 mg/dL Magnesium Level 2.0 1.6-2.6 mg/dL Total Bilirubin 0.3 0.2-1.0 mg/dL Aspartate Amino Transferase (AST) 13 13-40 U/L Alanine Aminotransferase (ALT) 12 7-40 U/L Alkaline Phosphatase 82 46-116 U/L Total Protein 6.9 5.7-8.2 g/dL Albumin 4.0 3.2-4.8 g/dL Amylase Level 41 30-118 U/L Lipase 34 12-53 U/L SARS-CoV-2 Antigen (Rapid) Negative NEGATIVE Test 03/13/25 18:45 03/13/25 13:30 03/13/25 13:11 Range/Units Influenza Type A Antigen Negative Negative Influenza Type B Antigen Negative Negative Urine Color Light-yellow Yellow Urine Clarity Clear Clear Urine pH 8.0 5.0-9.0 Urine Specific [place] 1.016 1.001-1.035 Urine Protein Negative Negative Urine Ketones Negative Negative Urine Blood 2+ H Negative /uL Urine Nitrite Negative Negative Urine Bilirubin Negative Negative Urine Urobilinogen Normal Negative mg/dL Urine Leukocyte Esterase Negative Negative /uL Urine RBC 19 0 - 4 /hpf Urine Microscopic WBC < 1 0-5 /HPF Urine Squamous Epithelial Cells None seen <5 /hpf Urine Bacteria None seen None Seen /hpf Urine Glucose Normal Normal mg/dL Urine Test Negative Negative Urine Opiates Screen Neg NEGATIVE Urine Fentanyl Screen Neg NEGATIVE Urine Barbiturates Screen Neg NEGATIVE Urine Phencyclidine Screen Neg NEGATIVE Urine Amphetamines Screen Neg NEGATIVE Urine Benzodiazepines Screen Neg NEGATIVE Urine Cocaine Screen Neg NEGATIVE Urine Cannabinoids Screen Neg NEGATIVE Lactic Acid Level 1.8 0.4-2.0 mmol/L Microbiology Date/Time Source Procedure Growth Status 03/13/25 15:10 Blood Blood Culture - Preliminary NO GROWTH AFTER 48 HOURS OF INCUBATION. Resulted Assessment/Plan Plan Patient is a 34-year-old female who presented to the hospital on March 13, 2025 for syncopal episode. In emergency room the patient did have fever up to 102.6. Later had abdominal pain and diarrhea. Patient is admitted for syncopal evaluation. As per documentation in the chart the patient does have history of coronary artery disease. Patient herself denies any history of cardiac problem. Patient herself mentions that she does have old history of vessel problems in the legs for which has had stents in the veins (performed by vascular doctor before). Patient was seen by GI who suggested evaluation by Cardiology because of questionable history of coronary artery disease. Cardiology is involved for cardiac aspects of care. Patient denies any chest pain/palpitations. Patient mentions baseline good functional capacity. Patient mentions history of syncope when she was few years back also. Young female, not in acute distress. Sitting in bed. No JVD. Mucosa is pink and wet. No carotid bruit. No goiter. Not using accessory muscles of breathing. Lungs are clear to auscultation. Cardiac: Regular, no thrill/gallop. Systolic murmur 2/6 in apex is heard. Abdomen is soft. Bowel sound is increased. There was no gross mass/hepatomegaly. Extremities do not reveal edema. Dorsalis pedis is 2+ bilateral Past medical history includes old history of DVTs and varicose veins. Patient has had stent in the veins before. Denies cardiac history. WBC: 8.6 - 11.4 - 11.1 Creatinine: 0.59 - 0.55 - 0.51 Potassium: 3.5 - 3.4 - 3.8 Urine toxicology was nonrevealing CT of the head reported: IMPRESSION: 1. No acute intracranial process. CT of the abdomen and pelvis reported: IMPRESSION: 1. No bowel obstruction, fluid collection, or free air. 2. Scattered fluid-filled small bowel loops which may be physiologic or related to enteritis. 3. Mildly prominent mesenteric and retroperitoneal lymph nodes, nonspecific on initial exam and may be reactive. Consider follow-up CT in 3-6 months to re-evaluate this finding. 4. Mild hepatomegaly. 5. Mildly enlarged uterus. This is not optimally evaluated by CT. Consider further evaluation with pelvic ultrasound if clinically indicated. 6. Bilateral ovarian cysts. 7. Stent in the left common femoral and external iliac veins, patency can not be assessed without intravenous contrast. EKG revealed sinus rhythm with no ST-T changes Tele reveals sinus rhythm Patient is a young female who presented with syncopal episode. Did have some headaches at that time. Patient is admitted with fever also and is found to h ave questionable enteritis. Patient complains of abdominal/crampy pain with occasional nausea and vomiting. Did have episodes of diarrhea. Primary cardiac etiology for syncope is less likely. Could have been vasovagal? Eventhough the chart mentions history of coronary artery disease, the patient herself denies any previous cardiac problem Syncope Enteritis Viral illness? Sepsis Old history of DVTs/varicose veins History of femoral/iliac vein stent Cardiac suggestion for management: Manage on telemetry Follow-up electrolytes and kidney function tests and correct abnormalities Chest x-ray Echocardiogram Evaluation and management of abdominal pain/diarrhea/enteritis as per primary team/GI Further evaluation and management depends on the above and clinical course Thank you for consultation A total of 75 minutes was spent reviewing the patient record, examining the patient, making a diagnostic and therapeutic plan, discussing this plan with medical personnel, following up on diagnostic studies and following the patient for clinical stability excluding any and all procedures. At least 50% of this time was spent in direct, [id number] contact. Thank you for allowing me to participate in this patient's care. Further recommendations will depend on patient's clinical course. Please do not hesitate to contact me if you have any questions or concerns. This medical document was created using electronic medical record system with [employer] computerized dictation system. Although this document has been carefully reviewed, there may still be some phonetic and typographical errors. These areas are purely typographical due to the imperfection of the software programs, and do not reflect any compromise in the patient's medical care. Plan discussed with: Patient, Other (nurse) MOOKIE CHAVARRIA MD Mar 16, 2025 09:26
[2025-03-16 09:59] LABS: Basophils # (auto) 0 10 ^3/uL (0-0.2); Basophils % (auto) 0.2 % (0.0-2.0); Eosinophils # (auto) 0.1 10 ^3/uL (0-0.8); Hemoglobin 12.2 g/dL (12.2-16.2); Mean Corpuscular Hemoglobin 28.1 pg (28.0-32.0); Mean Corpuscular Hgb Conc. 33.1 g/dL (32.0-36.0); Mean Corpuscular Volume 84.9 fL (80.0-100.0); Monocytes # (auto) 0.5 10 ^3/uL (0-1.3); Monocytes % (auto) 9.2 % (0.0-12.0); Neutrophils # (auto) 3.7 10 ^3/uL (1.6-8.6); Neutrophils % (auto) 69.6 % (37.0-80.0); Nucleated Red Blood Cells % 0.1 %; Platelet Count (auto) 208 10^3/uL (140-450); Red Blood Cells 4.36 10^6/uL (4.0-5.20); Red Cell Distribution Width 13.5 % (11.8-14.3); White Blood Cell 5.3 10^3/uL (4.4-10.8)
[2025-03-16 10:05] LABS: Alanine Aminotransferase 10 U/L (7-40); Albumin 3.8 g/dL (3.2-4.8); Alkaline Phosphatase 75 U/L (46-116); Anion Gap 8 (5-15); BUN/Creatinine Ratio 16.7 (10.0-20.0); Carbon Dioxide 22 mmol/L (20-31); Sodium 140 mmol/L (136-145); Total Protein 6.5 g/dL (5.7-8.2)
[2025-03-16 10:08] LABS: Aspartate Aminotransferase 13 U/L (13-40); Bilirubin, Total 0.2 mg/dL (0.2-1.0); Blood Urea Nitrogen 8 mg/dL (9-23); Calcium 8.4 mg/dL (8.7-10.4); Chloride 110 mmol/L (98-107); Glucose 108 mg/dL (74-106); Potassium 3.4 mmol/L (3.5-5.1)
[2025-03-16] MEDS ORDERED: LEVO500T91 PO (12:28)
[2025-03-16] MEDS ORDERED: ZOFR4T PO (12:28)
[2025-03-16] MEDS ORDERED: METR-344 PO (12:28)
[2025-03-16 13:00] VITALS: BP 124/71; PULSE 73; RESP 15; TEMP 97.9; O2SAT 99
--- NOTE | 2025-03-16 14:02 | DVHPN2 ---
Progress Note - Dictate Date Seen: Mar 16, 2025 Medical Necessity Reason Pt with a Central, PICC or Fol: No Subjective Patient seen at bedside, resting comfortably Cardiology consult was obtained to evaluate syncope which was likely vasovagal Patient is undergoing a 2D echocardiogram She has a history of vascular stent Patient states she is feeling better, she did have three bowel movements today which were more formed Stool for occult blood was negative were stool for WBC did show many WBC Stool for C diff was negative vital signs Vital Sign Date Time Temp Pulse Resp B/P (MAP) Pulse Ox O2 Delivery O2 Flow Rate FiO2 03/16/25 09:00 98.3 68 15 117/68 (84) 96 98.3 03/15/25 20:00 Room Air* 0 21 Total Intake and Output 03/15/25 03/15/25 03/16/25 15:00 23:00 07:00 Intake Total 2200 ml 2000 ml Output Total 800 ml Balance 1400 ml 2000 ml medications Current Medications Medications Dose Ordered Sig/Angelita Route Start Time Stop Time Status Last Admin Dose Admin Sodium Chloride 1,000 ml @ 120 mls/hr Q8H20M IV 03/13/25 18:15 03/16/25 10:21 120 MLS/HR Acetaminophen/ Hydrocodone Bitart 1 tab Q4HP PRN PO 03/13/25 18:15 Hold 03/14/25 14:06 1 TAB Temazepam 15 mg QHSP PRN PO 03/13/25 18:15 Ondansetron HCl 4 mg Q4HP PRN IV 03/13/25 18:15 03/16/25 12:42 4 MG Docusate Sodium 100 mg BIDPRN PRN PO 03/13/25 18:15 Enoxaparin Sodium 40 mg DAILY SC 03/14/25 10:00 03/16/25 08:24 40 MG Acetaminophen 650 mg Q6HP PRN PO 03/13/25 18:15 03/15/25 21:00 650 MG Morphine Sulfate 2 mg Q4HPRN PRN IV 03/13/25 18:15 Nitroglycerin 0.4 mg Q5MINP PRN SL 03/13/25 18:15 Morphine Sulfate 2 mg Q30M PRN IV 03/13/25 18:15 Ketorolac Tromethamine 30 mg Q6HPRN PRN IV 03/14/25 15:30 03/19/25 15:29 03/16/25 13:00 30 MG Ceftriaxone Sodium 50 ml @ 100 mls/hr DAILY@09 IV 03/16/25 09:00 03/16/25 08:24 100 MLS/HR Metronidazole 100 ml @ 100 mls/hr Q8HR@0200,1000,1800 IV 03/16/25 02:00 03/16/25 10:15 100 MLS/HR Pantoprazole Sodium 40 mg DAILY IV 03/16/25 10:00 03/16/25 08:24 40 MG objective General Appearance: alert, no distress, anxious HEENT: EOMI, PERRLA, normal external inspect of ears, no icterus, no nasal drainage Respiratory: clear to auscultation, normal air movement Cardiovascular: regular rate and rhythm, no diastolic murmur Abdominal: soft, no hepatomegaly, no mass, no splenomegaly, no tenderness Genitourinary: grossly normal external Musculoskeletal: no joint tenderness, no swelling Extremities: normal pulses, no calf tenderness, no clubbing, no cyanosis, no edema Skin: no bruising, no jaundice, no rash Neurological: alert, No focal deficit laboratory and microbiology Laboratory Tests 03/16/25 09:22 Test 03/16/25 09:22 Range/Units Serum Glucose 108 H 74-106 mg/dL Problems(with codes): (1) Syncope (2) Abnormal finding on GI tract imaging (3) Hepatomegaly (4) Abdominal pain in female (5) Fever Prognosis Plan Suspect viral syndrome with the acute gastroenteritis Advance diet as tolerated Patient does not like the food here Patient would like to be discharged home as she is feeling better Continue Cipro and Flagyl for 5-7 days Outpatient follow up with GI Services for further observation and management of GI issues Chest x-ray and echo results pending Dietary Evaluation Review Recommendations by RD: Dietary education by RD Comments: 1) Promote optimal PO intake. If < 50%, initiate Ensure Enlive qd 2) Refer to outpatient RD for weight management 3) Follow-up with cardiology 4) Continue to monitor I&O, labs, and skin integrity Expected Outcomes/Goals: 1) appetite and labs to improve 2) follow-up in 3-5 days Plan discussed with: Patient MINERVA SUAREZ MD Mar 16, 2025 14:02
--- NOTE | 2025-03-16 14:50 | DVH ---
CHEST RADIOGRAPH Indication: CP Technique: Single frontal view of the chest was obtained Comparison: CT 03/15/2025 FINDINGS: Lines and Tubes: None Lungs and Pleura: No focal consolidation. Pulmonary vascular congestion. No effusion. No pneumothorax. Cardiomediastinal contours: Unremarkable Bones: No acute osseous abnormality. IMPRESSION: 1. Pulmonary vascular congestion. No focal consolidation.
--- NOTE | 2025-03-16 16:08 | DVHDS2 ---
Discharge Summary Date of Admission Mar 13, 2025 at 18:12 Date of Discharge: Mar 16, 2025 Admitting Diagnosis Upper viral syndrome Labs/Diagnostic Data: Laboratory Results Test 03/16/25 09:22 03/15/25 11:45 03/14/25 06:07 03/13/25 23:15 White Blood Count 5.3 10^3/uL (4.4-10.8) Red Blood Count 4.36 10^6/uL (4.0-5.20) Hemoglobin 12.2 g/dL (12.2-16.2) Hematocrit 37.0 % (36.0-46.0) Mean Corpuscular Volume 84.9 fL (80.0-100.0) Mean Corpuscular Hemoglobin 28.1 pg (28.0-32.0) Mean Corpuscular Hemoglobin Concent 33.1 g/dL (32.0-36.0) Red Cell Distribution Width 13.5 % (11.8-14.3) Platelet Count 208 10^3/uL (140-450) Mean Platelet Volume 9.2 fL (6.9-10.8) Neutrophils (%) (Auto) 69.6 % (37.0-80.0) Lymphocytes (%) (Auto) 19.0 % (10.0-50.0) Monocytes (%) (Auto) 9.2 % (0.0-12.0) Eosinophils (%) (Auto) 2.0 % (0.0-7.0) Basophils (%) (Auto) 0.2 % (0.0-2.0) Neutrophils # (Auto) 3.7 10 ^3/uL (1.6-8.6) Lymphocytes # (Auto) 1.0 10 ^3/uL (0.4-5.4) Monocytes # (Auto) 0.5 10 ^3/uL (0-1.3) Eosinophils # (Auto) 0.1 10 ^3/uL (0-0.8) Basophils # (Auto) 0 10 ^3/uL (0-0.2) Nucleated Red Blood Cells 0.1 % Sodium Level 140 mmol/L (136-145) Potassium Level 3.4 mmol/L (3.5-5.1) Chloride Level 110 mmol/L (98-107) Carbon Dioxide Level 22 mmol/L (20-31) Anion Gap 8 (5-15) Blood Urea Nitrogen 8 mg/dL (9-23) Creatinine 0.48 mg/dL (0.550-1.02) Glomerular Filtration Rate Calc 127 mL/min (>90) BUN/Creatinine Ratio 16.7 (10.0-20.0) Serum Glucose 108 mg/dL (74-106) Calcium Level 8.4 mg/dL (8.7-10.4) Magnesium Level 2.0 mg/dL (1.6-2.6) Total Bilirubin 0.2 mg/dL (0.2-1.0) Aspartate Amino Transferase (AST) 13 U/L (13-40) Alanine Aminotransferase (ALT) 10 U/L (7-40) Alkaline Phosphatase 75 U/L (46-116) Total Protein 6.5 g/dL (5.7-8.2) Albumin 3.8 g/dL (3.2-4.8) Stool Occult Blood Negative (Negative) Stool Occult Blood Sample #3 (Negative) Stool for White Cells Moderate Amylase Level 41 U/L (30-118) Lipase 34 U/L (12-53) SARS-CoV-2 Antigen (Rapid) Negative (NEGATIVE) Test 03/13/25 18:45 03/13/25 13:30 03/13/25 13:11 Influenza Type A Antigen Negative (Negative) Influenza Type B Antigen Negative (Negative) Urine Color Light-yellow (Yellow) Urine Clarity Clear (Clear) Urine pH 8.0 (5.0-9.0) Urine Specific [place] 1.016 (1.001-1.035) Urine Protein Negative (Negative) Urine Ketones Negative (Negative) Urine Blood 2+ /uL (Negative) Urine Nitrite Negative (Negative) Urine Bilirubin Negative (Negative) Urine Urobilinogen Normal mg/dL (Negative) Urine Leukocyte Esterase Negative /uL (Negative) Urine RBC 19 /hpf (0 - 4) Urine Microscopic WBC < 1 /HPF (0-5) Urine Squamous Epithelial Cells None seen /hpf (<5) Urine Bacteria None seen /hpf (None Seen) Urine Glucose Normal mg/dL (Normal) Urine Test Negative (Negative) Urine Opiates Screen Neg (NEGATIVE) Urine Fentanyl Screen Neg (NEGATIVE) Urine Barbiturates Screen Neg (NEGATIVE) Urine Phencyclidine Screen Neg (NEGATIVE) Urine Amphetamines Screen Neg (NEGATIVE) Urine Benzodiazepines Screen Neg (NEGATIVE) Urine Cocaine Screen Neg (NEGATIVE) Urine Cannabinoids Screen Neg (NEGATIVE) Lactic Acid Level 1.8 mmol/L (0.4-2.0) Other Laboratory Tests 03/16/25 09:22 Brief Hx & Hospital Course: Patient was initially admitted for a prior viral syndrome. Patient was found to have acute bacterial enteritis with sepsis. Patient was given IV fluids and IV antibiotics during hospital stay patient reported feeling much better. GI consulted Cardiology due to concerns of chest pain. However upon my assessment patient denied any chest pain or coronary artery disease. Patient can be managed outpatient for chest pain. C diff was found to be negative. Patient will be sent home on Levaquin 500 x 7 days and metronidazole t.i.d. times 14 days. Patient was cleared by GI for discharge Condition at Discharge: Fair Final Diagnosis/Problems List 4. Acute bacterial enteritis 6. Hypokalemia 7. Hypocalcemia 10. Sepsis likely from enteritis Discharge Disposition: Home Discharge Instruct/Medications Diet: Cardiac 2g Na,low cholest Activity: No Restrictions, As Tolerated Follow Up/Referral: PCP within 1 week Discharge Statement: "Patient was advised to return to the ER or call 911 if any headaches, dizziness, shortness of breath, chest pain, abdominal pain, bleeding, fevers, or worsening of medical condition. Patient was counseled about treatment plan, medications, possible side effects, patientverbalized understanding. All questions were answered to the best of my ability. This discharge took greater then 30 minutes in planning, reviewing documentation, counseling the patient, and discussing with other team members." ASSESSMENT ASSESSMENT Assessment 4. Acute bacterial enteritis IV Flagyl, Rocephin 5. Leukocytosis likely secondary to enteritis 6. Hypokalemia Replace 7. Hypocalcemia 10. Sepsis likely from enteritis KATE WISE Mar 16, 2025 16:08
[2025-03-16 16:10] VITALS: BP 131/63; PULSE 60; RESP 18; TEMP 98.2; O2SAT 98
[2025-03-16] MEDS: POTASSIUM EFFERVESENT TAB 25 MEQ PO ONE (16:16)
--- NOTE | 2025-03-17 09:23 | DVHSR ---
APPROVED REPORT EXAM: Two-dimensional and M-mode echocardiogram with Doppler and color Doppler. Blood Pressure: 112/70 mmHg INDICATION Chest Pain Syncope RISK FACTORS Height: 5'6", Weight: 199 DIMENSIONS LVDd4.7 (3.8-5.7cm)LA (2D)4.4 (1.9-4.0cm)Aortic Root3.1 (2.0-3.7cm) LVDs3.2 (2.5-4.0cm)LA (MM) (1.9-4.0cm)Aortic Cusp Exc1.6 (1.5-2.0cm) EF (%) 60.0 (55-70%)Rt. Atrium4.3 (1.9-4.0cm)Asc. Aorta cm IVSd0.8 (0.7-1.1cm)RV (D) (1.8-2.4cm) PWd0.9 (0.7-1.1cm) Mitral Valve MitralMitral Stenosis E wave0.98m/sMV Mean GR.mmHg A wave0.81m/sMV Peak GR.mmHg E/A ratio1.22D MVAcm2 DECEL [id number] 1/2 [place] Aortic Valve Aortic ValveAortic Stenosis V11.04m/Darian Mean GR.5mmHg V21.42m/Darian Peak GR.8mmHg LVOT Diameter1.9 (1.8-2.4cm)Doppler AVA2.08cm2 Pulmonic Valve V21.08m/s Tricuspid Valve TR Velocity2.19m/s [id number] Conclusion Left ventricle: Left ventricle was normal-sized with normal systolic function. LVEF was around 60%. There was no wall motion abnormality. Diastolic function was considered normal. Right ventricle was normal-sized with normal systolic function. Both atria were normal-sized. Aortic valve was trileaflet. There was no aortic insufficiency/stenosis. There was minimal mitral v alve prolapse. There was trace mitral regurgitation. There was mild tricuspid regurgitation. There was mild pulmonary valve insufficiency. Right ventricular systolic pressure was assessed around 27 mm Hg (normal). The was trivial pericardi al effusion.
== END 2025-03-16 17:00 | disposition home or self-care (01) | DRG 872 ==
LOC: EDBD 11:29 → ER 11:43 → EDBD 11:43 → OVERFLOW 18:12 → TELE-EAST 21:05
PROVIDERS: ADMIT Nurse Practitioner; ATTEND Nurse Practitioner
DX: A41.9 Sepsis, unspecified organism (principal); A04.9 Bacterial intestinal infection, unspecified; B34.9 Viral infection, unspecified; R55 Syncope and collapse; R06.82 Tachypnea, not elsewhere classified; I25.10 Atherosclerotic heart disease of native coronary artery without angina pectoris; R00.0 Tachycardia, unspecified; E87.6 Hypokalemia; Z20.822 Contact with and (suspected) exposure to COVID-19; E83.51 Hypocalcemia; R16.0 Hepatomegaly, not elsewhere classified; Z86.718 Personal history of other venous thrombosis and embolism; Z95.5 Presence of coronary angioplasty implant and graft; Z87.891 Personal history of nicotine dependence
CPT/HCPCS: 36415; 70450; 71045; 74176; 80053; 80307; 81001; 81025; 82150; 82270; 83605; 83690; 83735; 85025; 85048; 87040; 87426; 87493; 87804; 93005; 93306; 96365; 96367; 96375; 99291; G0378; J1885; J2405; J2470; J2543; J3490